=== PATIENT | female | born 1940 | race Caucasian/White ===

== ENCOUNTER 2020-08-06 08:21 | Emergency (ER) | payer MEDICARE, OTHER ==
[2020-08-06 09:18] LABS: BASOPHIL 0.2 % (0-2); EOSINOPHIL 0.6 % (0-7); HCT 44.5 % (37.0-47.0); HGB 14.2 g/dl (12.5-16.0); LYMPHOCYTE 11.8 % (15-48); MCH 29.1 pg (25.0-31.0); MCHC 31.9 g/dL (32.0-36.0); MCV 91.2 fL (78.0-100.0); MONOCYTE 9.6 % (0-12); MPV 10.8 fL (6.0-9.5); NEUTROPHIL 76.9 % (41-80); NRBC 0; PLT 196 K/uL (150-400); RBC 4.88 M/uL (4.20-5.40); RDW 13.9 % (11.5-14.0); WBC 12.6 K/uL (4.0-10.5)
[2020-08-06 09:41] LABS: PRO-BNP 1934 pg/mL (<450)
[2020-08-06 09:51] LABS: BILIRUBIN - TOTAL 0.8 mg/dL (0.2-1.0); BUN/CREAT RATIO (CALC) 33.3 RATIO; CREATININE 0.9 mg/dL (0.51-0.95); GLOBULIN (CALCULATION) 4.1 g/dL; POTASSIUM 3.6 mmol/L (3.5-5.1); TOTAL PROTEIN 7.1 g/dL (6.4-8.2)
[2020-08-06 11:31] LABS: CORONAVIRUS 2019 SARS-COV-2 POSITIVE (NEGATIVE); INFLUENZA A NAA NEGATIVE (NEGATIVE)
[2020-08-06 13:46] LABS: INR 1.24 (0.9-1.2); PROTHROMBIN TIME 14.8 SECONDS (11.4-13.6); PTT 32.6 SECONDS (22.2-34.7)
== END 2020-08-06 15:41 | disposition other institution (70) ==
LOC: FER 08:21
PROVIDERS: Emergency Medicine
DX: U07.1 COVID-19 (principal); I26.99 Other pulmonary embolism without acute cor pulmonale; S26.99XA Other injury of heart, unspecified with or without hemopericardium, initial encounter; I10 Essential (primary) hypertension; X58.XXXA Exposure to other specified factors, initial encounter
CPT/HCPCS: 36415; 71045; 71275; 80053; 83605; 83880; 84145; 84484; 85025; 85610; 85730; 87040; 93005; J1644; Q9967; U0002

== ENCOUNTER → 2021-05-27 | Day surgery (SDC) | payer MEDICARE, OTHER ==
[~2021-05-27] VITALS: Ht 154.9 cm; Wt 106.6 kg
[~2021-05-27] MED LIST: ACETAMINOPHEN500 M1 PO; ALDACTONE25 MG PO; ANUCORT-HC25 MG PR; ARICEPT10 MG PO; CELEXA10 MG PO; COLACE100 MG PO; ELIQUIS5 MG PO; HYDROCORTISONE TOP; LASIX40 MG PO; NAMENDA 10MG TA10 MG PO; NORVASC5 MG PO; PEPCID AC20 MG PO; TRAMADOL HCL50 MG PO; TRAZODONE 50MG50 MG PO; VITAMIN D3125 MC1 PO; ZYRTEC10 M3 PO
[2021-05-27 10:11] LABS: HCT 42.4 % (37.0-47.0); HGB 13.4 g/dl (12.5-16.0); MCH 28.9 pg (25.0-31.0); MCHC 31.6 g/dL (32.0-36.0); MCV 91.4 fL (78.0-100.0); RBC 4.64 M/uL (4.20-5.40)
[2021-05-27 11:16] LABS: ALBUMIN 3.6 g/dL (3.4-5.0); BILIRUBIN - TOTAL 0.4 mg/dL (0.2-1.0); BUN/CREAT RATIO (CALC) 18.2 RATIO; CREATININE 0.99 mg/dL (0.51-0.95); GLOBULIN (CALCULATION) 3.5 g/dL; POTASSIUM 3.9 mmol/L (3.5-5.1); TOTAL PROTEIN 7.1 g/dL (6.4-8.2)
== END | disposition home or self-care (01) ==
LOC: FAS 08:50
PROVIDERS: Surgery
DX: K62.89 Other specified diseases of anus and rectum (principal); K64.1 Second degree hemorrhoids; I10 Essential (primary) hypertension; E11.9 Type 2 diabetes mellitus without complications; E78.00 Pure hypercholesterolemia, unspecified; Z86.711 Personal history of pulmonary embolism; Z88.0 Allergy status to penicillin; Z88.6 Allergy status to analgesic agent; Z88.1 Allergy status to other antibiotic agents; Z88.8 Allergy status to other drugs, medicaments and biological substances; Z79.01 Long term (current) use of anticoagulants; Z79.899 Other long term (current) drug therapy
CPT/HCPCS: 36415; 80053; J1100; J2704; J7120